=== PATIENT | male | born 1965 ===

== ENCOUNTER 2024-05-22 09:48 | Outpatient (RCR) | payer BC, SELFPAY | END 2024-05-22 23:59 | disposition home or self-care (01) | LOC: CRHB 09:48 | PROVIDERS: ATTENDING PHYSICIAN Internal Medicine Cardiovascular Disease | DX: I25.10 Atherosclerotic heart disease of native coronary artery without angina pectoris (principal); Z95.5 Presence of coronary angioplasty implant and graft; I25.2 Old myocardial infarction | CPT/HCPCS: 93797; 93798 ==

== ENCOUNTER 2024-06-17 09:54 | Outpatient (RCR) | payer BC, SELFPAY ==
[2024-06-15 12:28] LABS: HDL Cholesterol 34 mg/dl; LDL Cholesterol, Calculated 38 mg/dl; Total Cholesterol 115 mg/dl (50-199); Triglyceride 216 mg/dl (10-149); Very Low Density Lipoprotein 43 mg/dl (0-30)
== END 2024-06-19 15:31 | disposition other institution (70) ==
LOC: CRHB 09:54
PROVIDERS: ATTENDING PHYSICIAN Internal Medicine Cardiovascular Disease
DX: I25.10 Atherosclerotic heart disease of native coronary artery without angina pectoris (principal); I21.4 Non-ST elevation (NSTEMI) myocardial infarction (principal); Z95.5 Presence of coronary angioplasty implant and graft; I25.2 Old myocardial infarction
CPT/HCPCS: 36415; 80061; 93797; 93798